=== PATIENT | male | born 1965 | race Caucasian/White ===

== ENCOUNTER 2018-02-27 17:53 | Inpatient (IN) | payer MEDICARE, SELFPAY ==
[2018-02-27 17:55] VITALS: BP 166/90; PULSE 100; RESP 16; TEMP 36.8; O2SAT 96; BMI 48.7
--- NOTE | 2018-02-27 18:13 | EKG12_ITS ---
Test Reason : Blood Pressure : / mmHG Vent. Rate : 091 BPM Atrial Rate : 091 BPM P-R Int : 144 ms QRS Dur : 090 ms QT Int : 380 ms P-R-T Axes : 055 034 047 degrees QTc Int : 467 ms Normal sinus rhythm Possible Left atrial enlargement Borderline ECG Confirmed by СВЕТЛАНА SAGE, JASMINE ([id number]), clinical editor DERRICK WEAVER ([id number]) on 03/05/2018 11:25:55 AM Referred By: LOURDES Confirmed By:JASMINE SOTOMAYOR MD
--- NOTE | 2018-02-27 18:13 | CT_ITS ---
STUDY: CT CHEST WITH CONTRAST REASON FOR EXAM: Male, 52 years old. Alcohol withdrawal, fall RADIATION DOSAGE (If Supplied By Facility): CTDIvol = ( 24.75 ) mGy, DLP = ( 2565.13 ) mGycm TECHNIQUE: Transaxial imaging was performed following intravenous administration of 100ML ml of Isovue 300 contrast material. Individualized dose optimization techniques were used for this CT. COMPARISON: None. FINDINGS: The lungs are normal. There is no demonstrated pleural abnormality. Normal heart and pericardium. Normal mediastinum. Normal hilar regions. Normal enhanced pulmonary arteries. Normal aorta arch and descending thoracic aorta. Old right rib fractures and old sternal fracture. Degenerative vertebral changes. Mildly fatty liver. CT/Chest WITH Contrast IMPRESSION: No acute pulmonary pathology. Old right rib and sternal fractures. Mild fatty liver. Electronically Signed: Carlos Mckenzie DO at 21:18 EST Tel [phone], Service support ,
--- NOTE | 2018-02-27 18:13 | CT_ITS ---
STUDY: CT ABDOMEN AND PELVIS WITH CONTRAST REASON FOR EXAM: Male, 52 years old. Alcohol withdrawal, fall RADIATION DOSAGE (If Supplied By Facility): CTDIvol = ( 24.75 ) mGy, DLP = ( 2565.13 ) mGycm TECHNIQUE: Transaxial images were obtained from the dome of the diaphragm to the symphysis pubis without oral contrast. 100ML ml of Isovue 300 contrast was administered. Sagittal and coronal images were reconstructed. Individualized dose optimization techniques were used for this CT. COMPARISON: None. FINDINGS: The visualized lung bases are unremarkable. The visualized portions of the heart are within normal limits. Fatty liver. Normal gallbladder and extrahepatic biliary system. Normal spleen. Normal pancreas. Normal bilateral adrenal glands. 1.1 cm probable exophytic cyst of the right kidney. Normal left kidney. Normal visualized stomach. Normal small intestine. Normal colon. The appendix is not visualized. Mildly calcified abdominal aorta. Normal inferior vena cava. Normal retroperitoneum. Wall thickening of the urinary bladder. Normal abdominal wall. Degenerative vertebral changes. Old right rib fractures. Possible old right pelvic injury. CT/Abdomen/Pelvis W IV Cont ONLY IMPRESSION: Fatty liver. Wall thickening of the urinary bladder. Probable exophytic right renal cyst. Correlate with ultrasound if needed. Electronically Signed: Carlos Mckenzie DO at 21:28 EST Tel [phone], Service support ,
--- NOTE | 2018-02-27 18:15 | ED.VISSUMM ---
- ER Visit Summary Date of Service: 02/27/18 Chief Complaint: Alcohol withdrawal History of Present Illness: The patient is a 52 M who presents for alcohol withdrawal. Patient states his last drink was yesterday. He drinks greater than 1 bottle of vodka daily. Patient is having nausea, vomiting, tremulousness. He has been in detox before, most recently in September. His plan is to stop drinking and he was trying to detox at home. Patient fell at some point in the last 5 days but is not sure what happened or when he fell. He is complaining of left-sided chest pain and has significant bruising. Patient is not on any blood thinners. He has history of lymphedema and hypertension. Denies any other substance use. Physical Examination: Vital signs: afebrile, hemodynamically stable, no hypoxia on room air General: well nourished, well developed, BMI of 49, sitting on bed, appears uncomfortable and tremulous, patient actively retching Skin: warm, dry, dark ecchymosis scattered on the left anterior, lateral and posterior chest wall and abdomen. Tenderness to palpation. HEENT: normocephalic and atraumatic; PERRL, EOMI, moist mucous membranes Cardiovascular: Tachycardic rate and rhythm without murmurs, no peripheral edema, 2+ pulses all distal extremities Respiratory: No increased work of breathing, lungs are clear to auscultation bilaterally, no rales, rhonchi or wheezing Abdominal: Abdomen is soft, ecchymotic, tender with normoactive bowel sounds, no guarding or rebound, no masses, exam limited secondary to body habitus MSK: Moves all extremities, no deformities, normal strength Neuro: Awake and alert, oriented ?4. Anxious. No facial droop, sensation and motor function intact and symmetric Test Results: Abnormal Lab Results 02/27/18 02/27/18 02/27/18 18:56 18:56 18:56 WBC 7.8 RBC 4.46 L Hgb 14.5 Hct 42.0 MCV 94.2 H MCH 32.5 H MCHC 34.5 RDW 14.5 RDW Differential 48.4 H Plt Count 146 L MPV 9.5 Immature Gran % (Auto) 0.300 Neut % (Auto) 83.4 H Lymph % (Auto) 7.9 L [place] % (Auto) 8.3 Eos % (Auto) 0.0 Baso % (Auto) 0.1 Absolute Neuts (auto) 6.5 Absolute Lymphs (auto) 0.62 L Total Counted Not Reportable PT INR APTT Sodium 131 L Potassium 4.3 Chloride 92 L Carbon Dioxide 21.0 Anion Gap 18 H BUN 21 H Creatinine 1.04 Estim Creat Clear Calc 95.50 Est GFR (MDRD) Af Amer 96 Est GFR (MDRD) Non-Af 79 BUN/Creatinine Ratio 20.2 H Glucose 147 H Calcium 8.5 Total Bilirubin 2.80 H AST 81 H ALT 51 Alkaline Phosphatase 69 Total Protein 7.5 Albumin 4.0 Globulin 3.5 Albumin/Globulin Ratio 1.1 Urine Color Urine Clarity Urine pH Ur Specific [place] Urine Protein Urine Glucose (UA) Urine Ketones Urine Occult Blood Urine Nitrite Urine Bilirubin Urine Urobilinogen Ur Leukocyte Esterase Urine RBC Urine WBC Ur Squamous Epith Cells Urine Bacteria Hyaline Casts Urine Mucus Urine Opiates Screen Urine Methadone Screen Ur Barbiturates Screen Ur Phencyclidine Scrn Ur Amphetamines Screen U Methamphetamin-MDMA U Benzodiazepines Scrn Urine Cocaine Screen U Cannabinoids Screen Ur Drug Screen Comment Ethyl Alcohol 5.0 02/27/18 02/27/18 02/27/18 18:56 19:25 19:25 WBC RBC Hgb Hct MCV MCH MCHC RDW RDW Differential Plt Count MPV Immature Gran % (Auto) Neut % (Auto) Lymph % (Auto) [place] % (Auto) Eos % (Auto) Baso % (Auto) Absolute Neuts (auto) Absolute Lymphs (auto) Total Counted PT 13.4 INR 1.0 APTT 20.0 L Sodium Potassium Chloride Carbon Dioxide Anion Gap BUN Creatinine Estim Creat Clear Calc Est GFR (MDRD) Af Amer Est GFR (MDRD) Non-Af BUN/Creatinine Ratio Glucose Calcium Total Bilirubin AST ALT Alkaline Phosphatase Total Protein Albumin Globulin Albumin/Globulin Ratio Urine Color Yellow Urine Clarity Sl. Cloudy Urine pH 6.0 Ur Specific [place] 1.025 Urine Protein 100 H Urine Glucose (UA) Normal Urine Ketones 150 H Urine Occult Blood 50 H Urine Nitrite Negative Urine Bilirubin 1 H Urine Urobilinogen 4 H Ur Leukocyte Esterase 25 H Urine RBC 0-5 SEEN Urine WBC 0-5 SEEN Ur Squamous Epith Cells 0-5 SEEN Urine Bacteria 0 SEEN Hyaline Casts 0-5 SEEN Urine Mucus 0 SEEN Urine Opiates Screen NEGATIVE Urine Methadone Screen NEGATIVE Ur Barbiturates Screen NEGATIVE Ur Phencyclidine Scrn NEGATIVE Ur Amphetamines Screen NEGATIVE U Methamphetamin-MDMA NEGATIVE U Benzodiazepines Scrn NEGATIVE Urine Cocaine Screen NEGATIVE U Cannabinoids Screen NEGATIVE Ur Drug Screen Comment Ethyl Alcohol Clinical Impression(s) from Imaging Studies Abdomen/Pelvis CT 02/27/18 18:13 IMPRESSION: Fatty liver. Wall thickening of the urinary bladder. Probable exophytic right renal cyst. Correlate with ultrasound if needed. Electronically Signed: Carlos Mckenzie DO at 21:28 EST Tel [phone], Service support , Chest CT 02/27/18 18:13 IMPRESSION: No acute pulmonary pathology. Old right rib and sternal fractures. Mild fatty liver. Electronically Signed: Carlos Mckenzie DO at 21:18 EST Tel [phone], Service support , Medications Given Lactated Ringer's () 1,000 mls @ 200 mls/hr IV .Q5H XOCHITL Last Admin: 02/27/18 21:56 Dose: 200 mls/hr Discontinued Medications Sodium Chloride () 1,000 mls @ 999 mls/hr IV .Q1H1M ONE Stop: 02/27/18 19:13 Last Admin: 02/27/18 18:53 Dose: 999 mls/hr Lorazepam (Ativan) 1 mg IV X1 ONE Stop: 02/27/18 18:13 Last Admin: 02/27/18 18:53 Dose: 1 mg Lorazepam (Ativan) 1 mg IV X1 ONE Stop: 02/27/18 21:44 Last Admin: 02/27/18 21:56 Dose: 1 mg Ondansetron HCl (Zofran) 4 mg IV X1 ONE Stop: 02/27/18 18:16 Last Admin: 02/27/18 18:54 Dose: 4 mg Emergency Department Course and Treatment: Patient presents in obvious alcohol withdrawal, with tremulousness, tachycardia, vomiting and anxiousness. He was given Ativan and Zofran along with IV fluids. He had great improvement in his symptoms after medication. Because patient does have the significant ecchymosis on the left torso from a fall where he does not know what happened, CT abdomen chest and pelvis was performed to evaluate for any serious injury. There were no acute internal injuries noted. EKG showed a sinus rhythm without any ischemic changes. Labs were remarkable for mild hyponatremia, mild anion gap and positive ketones in the urine, likely due to patient's heavy alcohol use and poor nutrition. Patient received IV fluids. Alcohol was negative. Tox screen was negative. Patient would benefit from medical management of his withdrawal symptoms and hydration. He would also like to be evaluated by [facility] for the detox program tomorrow. He does not want to continue drinking and was attempting to detox at home without success. He was discussed with the hospitalist and admitted. Treatment Plan: [] Disposition: [] Impression: Acute alcohol withdrawal This note was generated with [employer] dictation software. It may contain incorrect words, spelling, and punctuation that were not noted in review of the chart prior to signing ED Disposition - Plan for ED Patient: Disposition: Acute Care Hospital [facility] Chief Complaint: Substance Abuse
--- NOTE | 2018-02-27 18:18 | ED.DCSUM_ITS ---
- ER Visit Summary Date of Service: 02/27/18 Chief Complaint: Alcohol withdrawal History of Present Illness: The patient is a 52 M who presents for alcohol withdrawal. Patient states his last drink was yesterday. He drinks greater than 1 bottle of vodka daily. Patient is having nausea, vomiting, tremulou sness. He has been in detox before, most recently in September. His plan is to stop drinking and he was trying to detox at home. Patient fell at some point in the last 5 days but is not sure what happened or when he fell. He is complaining of left-sided chest pain and has significant bruising. Patient is not on any blood thinners. He has history of lymphedema and hypertension. Denies any other s ubstance use. Physical Examination: Vital signs: afebrile, hemodynamically stable, no hypoxia on room air General: well nourished, well developed, BMI of 49, sitting on bed, appears uncomfortable and tremulous, patient actively retching Skin: warm, dry, dark ecchymosis scattered on the left anterior, lateral and posterior chest wall and abdomen. Tenderness to palpation. HEENT: normocephalic and atraumatic; PERRL, EOMI, moist mucous membranes Cardiovascular: Tachycardic rate and rhythm without murmurs, no peripheral edema, 2+ pulses all distal extremities Respiratory: No increased work of breathing, lungs are clear to auscultation bilaterally, no rales, rhonchi or wheezing Abdominal: Abdomen is soft, ecchymotic, tender with normoactive bowel sounds, no guarding or rebound, no masses, exam limited secondary to body habitus MSK: Moves all extremities, no deformities, normal strength Neuro: Awake and alert, oriented ?4. Anxious. No facial droop, sensation and motor function intact and symmetric Test Results: Abnormal Lab Results 02/27/18 02/27/18 02/27/18 18:56 18:56 18:56 WBC 7.8 RBC 4.46 L Hgb 14.5 Hct 42.0 MCV 94.2 H MCH 32.5 H MCHC 34.5 RDW 14.5 RDW Differential 48.4 H Plt Count 146 L MPV 9.5 Immature Gran % (Auto) 0.300 Neut % (Auto) 83.4 H Lymph % (Auto) 7.9 L [place] % (Auto) 8.3 Eos % (Auto) 0.0 Baso % (Auto) 0.1 Absolute Neuts (auto) 6.5 Absolute Lymphs (auto) 0.62 L Total Counted Not Reportable PT INR APTT Sodium 131 L Potassium 4.3 Chloride 92 L Carbon Dioxide 21.0 Anion Gap 18 H BUN 21 H Creatinine 1.04 Estim Creat Clear Calc 95.50 Est GFR (MDRD) Af Amer 96 Est GFR (MDRD) Non-Af 79 BUN/Creatinine Ratio 20.2 H Glucose 147 H Calcium 8.5 Total Bilirubin 2.80 H AST 81 H ALT 51 Alkaline Phosphatase 69 Total Protein 7.5 Albumin 4.0 Globulin 3.5 Albumin/Globulin Ratio 1.1 Urine Color Urine Clarity Urine pH Ur Specific [place] Urine Protein Urine Glucose (UA) Urine Ketones Urine Occult Blood Urine Nitrite Urine Bilirubin Urine Urobilinogen Ur Leukocyte Esterase Urine RBC Urine WBC Ur Squamous Epith Cells Urine Bacteria Hyaline Casts Urine Mucus Urine Opiates Screen Urine Methadone Screen Ur Barbiturates Screen Ur Phencyclidine Scrn Ur Amphetamines Screen U Methamphetamin-MDMA U Benzodiazepines Scrn Urine Cocaine Screen U Cannabinoids Screen Ur Drug Screen Comment Ethyl Alcohol 5.0 02/27/18 02/27/18 02/27/18 18:56 19:25 19:25 WBC RBC Hgb Hct MCV MCH MCHC RDW RDW Differential Plt Count MPV Immature Gran % (Auto) Neut % (Auto) Lymph % (Auto) [place] % (Auto) Eos % (Auto) Baso % (Auto) Absolute Neuts (auto) Absolute Lymphs (auto) Total Counted PT 13.4 INR 1.0 APTT 20.0 L Sodium Potassium Chloride Carbon Dioxide Anion Gap BUN Creatinine Estim Creat Clear Calc Est GFR (MDRD) Af Amer Est GFR (MDRD) Non-Af BUN/Creatinine Ratio Glucose Calcium Total Bilirubin AST ALT Alkaline Phosphatase Total Protein Albumin Globulin Albumin/Globulin Ratio Urine Color Yellow Urine Clarity Sl. Cloudy Urine pH 6.0 Ur Specific [place] 1.025 Urine Protein 100 H Urine Glucose (UA) Normal Urine Ketones 150 H Urine Occult Blood 50 H Urine Nitrite Negative Urine Bilirubin 1 H Urine Urobilinogen 4 H Ur Leukocyte Esterase 25 H Urine RBC 0-5 SEEN Urine WBC 0-5 SEEN Ur Squamous Epith Cells 0-5 SEEN Urine Bacteria 0 SEEN Hyaline Casts 0-5 SEEN Urine Mucus 0 SEEN Urine Opiates Screen NEGATIVE Urine Methadone Screen NEGATIVE Ur Barbiturates Screen NEGATIVE Ur Phencyclidine Scrn NEGATIVE Ur Amphetamines Screen NEGATIVE U Methamphetamin-MDMA NEGATIVE U Benzodiazepines Scrn NEGATIVE Urine Cocaine Screen NEGATIVE U Cannabinoids Screen NEGATIVE Ur Drug Screen Comment Ethyl Alcohol Clinical Impression(s) from Imaging Studies Abdomen/Pelvis CT 02/27/18 18:13 IMPRESSION: Fatty liver. Wall thickening of the urinary bladder. Probable exophytic right renal cyst. Correlate with ultrasound if needed. Electronically Signed: Carlos Mckenzie DO at 21:28 EST Tel [phone], Service support , Chest CT 02/27/18 18:13 IMPRESSION: No acute pulmonary pathology. Old right rib and sternal fractures. Mild fatty liver. Electronically Signed: Carlos Mckenzie DO at 21:18 EST Tel [phone], Service support , Medications Given Lactated Ringer's () 1,000 mls @ 200 mls/hr IV .Q5H XOCHITL Last Admin: 02/27/18 21:56 Dose: 200 mls/hr Discontinued Medications Sodium Chloride () 1,000 mls @ 999 mls/hr IV .Q1H1M ONE Stop: 02/27/18 19:13 Last Admin: 02/27/18 18:53 Dose: 999 mls/hr Lorazepam (Ativan) 1 mg IV X1 ONE Stop: 02/27/18 18:13 Last Admin: 02/27/18 18:53 Dose: 1 mg Lorazepam (Ativan) 1 mg IV X1 ONE Stop: 02/27/18 21:44 Last Admin: 02/27/18 21:56 Dose: 1 mg Ondansetron HCl (Zofran) 4 mg IV X1 ONE Stop: 02/27/18 18:16 Last Admin: 02/27/18 18:54 Dose: 4 mg Emergency Department Course and Treatment: Patient presents in obvious alcohol withdrawal, with tremulousness, tachycardia, vomiting and anxiousness. He was given Ativan and Zofran along with IV fluids. He had great improvement in his symptoms after medication. Because patient does have the significant ecchymosis on the left torso from a fall where he does not know what happened, CT abdomen chest and pelvis was performed to evaluate for any serious injury. There were no acute internal injuries noted. EKG showed a sinus rhythm without any ischemic changes. Labs were remarkable for mild hyponatremia, mild anion gap and positive ketones in the urine, likely due to patient's heavy alcohol use and poor nutrition. Patient received IV fluids. Alcohol was negative. Tox screen was negative. Patient would benefit from medical management of his withdrawal symptoms and hydration. He would also like to be evaluated by [facility] for the detox program tomorrow. He does not want to continue drinking and was attempting to detox at home without success. He was discussed with the hospitalist and admitted. Treatment Plan: [] Disposition: [] Impression: Acute alcohol withdrawal This note was generated with [employer] dictation software. It may contain incorrect words, spelling, and punctuation that were not noted in review of the chart prior to signing ED Disposition - Plan for ED Patient: Disposition: Acute Care Hospital [facility] Chief Complaint: Substance Abuse
[2018-02-27] MEDS: LORazepam 2 MG/ML Syringe 1 MG IV ×2 (18:53→21:56)
[2018-02-27] MEDS: 0.9% Normal Saline 1,000 ML 999 ML IV (18:53)
[2018-02-27] MEDS: Ondansetron 4 MG/2 ML Vial IV (18:54)
[2018-02-27 19:34] LABS: Bacteria 0 SEEN /hpf (None Seen); Mucous, Urine 0 SEEN /hpf (<or=2+)
[2018-02-27 19:35] LABS: Absolute Lymphocyte Count 0.62 X10^3/ul (0.83-4.51); Absolute Neutrophil Count 6.5 X10^3/uL (2.0-7.7); Basophil# 0.01 X10^3/uL; Basophil% 0.1 % (0-1); Hemoglobin 14.5 g/dl (13.0-16.5); Lymphocyte # 0.62 X10^3/ul (4.0); Lymphocyte % 7.9 % (19-41); Mean Corp Hgb Conc 34.5 g/gl (32-36); Mean Corpuscular Hgb 32.5 pg (27.0-32.0); Mean Corpuscular Volume 94.2 fL (80-94); Mean Platelet Vol. 9.5 fl (6.2-12.0); Monocyte# 0.65 X10^3/uL; Monocyte% 8.3 % (0-10); Neutrophil # 6.54 X10^3/uL (2.7-7.7); Neutrophil % 83.4 % (47-70); Platelet Count 146 K/mm3 (150-450); RBC Distribution Width CV 14.5 % (11.6-14.6); RBC Distribution Width SD 48.4 fl (35.1-43.9); Red Blood Count 4.46 M/mm3 (4.6-6.2); White Blood Count 7.8 K/mm3 (4.4-11.0)
[2018-02-27 19:36] LABS: POSITIVE COUNT NO; POSITIVE DIFFERENTIAL NO; POSITIVE MORPHOLOGY NO
[2018-02-27 19:46] LABS: ALB/GLOB Ratio 1.1 RATIO (0.9-2.4); AST(SGOT) 81 U/L (15-37); Alanine Aminotransfer ALT/SGPT 51 U/L (16-61); Alkaline Phosphatase 69 U/L (45-117); Anion Gap 18 (5-15); BUN 21 mg/dL (7-18); BUN/Creat Ratio 20.2 RATIO (10-20); Calcium,Total 8.5 mg/dL (8.5-10.1); Chloride 92 mmol/L (98-107); Creatinine, Serum 1.04 mg/dL (0.70-1.30); EST Glomerular Filtration Rate 79 mL/min (>60); Est Glom Filt Rate - Afr Amer 96 mL/min (>60); Globulin 3.5 g/dL (2.2-4.2); Glucose 147 mg/dL (74-106); Potassium 4.3 mmol/L (3.5-5.1); Protein, Total 7.5 g/dL (6.4-8.2); Sodium Level 131 mmol/L (136-145)
[2018-02-27 19:46] LABS: Color, Urine Yellow (Yellow); Glucose, Dipstick Normal (Normal); Leukocyte Esterase-Dipstick 25 /ul (Negative); Nitrite-Dipstick Negative (Negative); Occult Blood-Urine 50 /ul (Negative); Protein-Dipstick 100 mg/dl (Negative); Specific Gravity, Urine 1.025 (1.002-1.030); Urine Clarity Sl. Cloudy (Clear); Urine Urobilinogen 4 mg/dl (Normal)
[2018-02-27 19:48] LABS: Urine Bilirubin Dipstick 1 mg/dL (Negative)
--- NOTE | 2018-02-27 19:49 | ED.RN ---
DR CARMONA NOTIFIED OF KETONES IN URINE
[2018-02-27 19:50] LABS: Ketone-Dipstick 150 mg/dl (Negative)
[2018-02-27 19:52] LABS: Amphetamine Urine VISTA NEGATIVE (<1000 ng/mL); Barbiturate Urine VISTA NEGATIVE (< 200 ng/mL); Benzodiazepine Urine VISTA NEGATIVE (< 200 ng/mL); Cocaine Urine VISTA NEGATIVE (< 300 ng/mL); Ecstacy Urine VISTA NEGATIVE (< 500 ng/mL); Methadone Urine VISTA NEGATIVE (< 300 ng/mL); PCP Urine VISTA NEGATIVE (< 25 ng/mL); THC Urine VISTA NEGATIVE (< 50 ng/mL); Vista UDS pH Range 6
[2018-02-27 19:53] LABS: Red Blood Cells-Urine 0-5 SEEN /hpf (0-5); Squamous Epithelial Cells - UA 0-5 SEEN /hpf (0-5); White Blood Cells 0-5 SEEN /hpf (0-5)
[2018-02-27 19:54] LABS: Hyaline Cast 0-5 SEEN /lpf (0-5)
[2018-02-27 20:13] VITALS: BP 169/85; PULSE 99; RESP 20; O2SAT 98
--- NOTE | 2018-02-27 21:37 | HP.PCM_ITS ---
Problem List (1) Alcohol dependence with withdrawal Status: Acute History of Present Illness Date of Admission: 02/27/18 Chief Complaint: nausea and tremors The patient is a 52 year old M with a significant history of hypertension, alcohol dependence, lymphedema who presents with nausea, vomiting, visual hallucination, tremors and restlessness that he associates with alcohol withdrawal. Patient drinks more than 1 bottle of vodka per day. He drinks sporadically. Reportedly over the weekend patient had binge drinking. He fell a couple of days ago and bruised his left chest and a couple of areas of his body. Patient previously spent some time for inpatient alcohol treatment at [place], [place]. He used to attend [employer] meetings. He has been on naltrexone in the past Past Medical History Medical History: Medical History (Last Updated 02/27/18 @ 22:29 by Bernardo Perdomo MD) Lymphedema I89.0 Hypertension I10 Allergies sulfamethoxazole [From Bactrim] Allergy (Verified 02/27/18 17:55) Hives trimethoprim [From Bactrim] Allergy (Verified 02/27/18 17:55) Hives Home Medications: Ambulatory Orders Medication Instructions Recorded Clonidine HCl 0.1 mg PO DAILY 02/27/18 Hydrochlorothiazide [Hctz] 50 mg PO DAILY 02/27/18 Lactobacillus Acidophilus 1 each PO DAILY 02/27/18 [Acidophilus] Lisinopril [Zestril] 40 mg PO DAILY 02/27/18 Metoprolol Succinate 200 mg PO DAILY 02/27/18 Naltrexone HCl 50 mg PO DAILY 02/27/18 [place]-3 Fatty Acids/Fish Oil [Fish 1 each PO DAILY 02/27/18 Oil 1,000 mg Capsule] Zolpidem Tartrate [Ambien 5 mg PO QHS PRN PRN 02/27/18 (Generic)] Surgical History: - - Right hand surgery;and left hip surgery. Lives: Spouse/ Significant Other Smoking Status: Never smoker Alcohol: Heavy Drugs: None - *Family History Paternal History Items: - - Alcoholism Maternal History Items: - - Alcoholism Review of Systems Constitutional: Denies: Chills, Fever, Weight Change HEENT: Reports: Head Aches. Denies: Sinus Congestion, Sinus Drainage Cardiovascular: Reports: Chest Pain - Left-sided chest pain from falling.. Denies: Palpitations Respiratory: Denies: Cough, Shortness of breath at rest, Sputum production Gastrointestinal: Reports: Nausea, Vomiting. Denies: Abdominal Pain Genitourinary: Denies: Dysuria Musculoskeletal: Denies: Joint Pain, Joint Tenderness Skin: Denies: Rash, Wounds Neurological: Denies: Numbness, Tingling, Focal weakness Psychiatric: Denies: Anxiety, Depression, Homicidal Ideations, Suicidal Ideations Hematologic/ Lymphatic: Denies: Easy Bruising, Easy Bleeding VTE Information - Inpt Only VTE Present on Admission: No VTE Mechan Device Prophylaxis: None VTE Pharm Prophylaxis ordered?: Yes Patient Problems: Active and Suspected Problems (Last Updated 02/27/18 @ 22:29 by Bernardo Perdomo MD) Alcohol dependence with withdrawal (Acute) - Physical Exam General: Alert, Oriented x3, Cooperative HEENT: Atraumatic, PERRLA, EOMI, Normocephalic Neck: Supple, No JVD, Negative Carotid Bruits Lungs: Clear to auscultation, Normal air movement, - - Tender left chest area. Cardiovascular: Regular rate, No murmurs Abdomen: Bowel Sounds Present, Soft, Non Tender Extremities: No edema, Capillary Refill Less than 3 Seconds Skin: No rashes, No breakdown, - - Bruises on left chest and multiple areas of the skin. Musculoskeletal: No Tenderness to Palpation of Joints or Extremities Neurological: Cranial nerves II-XII grossly intact Psych/Mental Status: Normal Affect, Appropriate Vital Signs Temp Pulse Resp BP Pulse Ox 98.2 F 99 20 H 169/85 H 98 02/27/18 17:55 02/27/18 20:13 02/27/18 20:13 02/27/18 20:13 02/27/18 20:13 Oxygen Delivery Method Room Air Weight: 172.365 kg Body Mass Index (BMI) 48.7 Laboratory Tests Past 24 Hrs 02/27/18 02/27/18 02/27/18 18:56 18:56 18:56 WBC 7.8 RBC 4.46 L Hgb 14.5 Hct 42.0 MCV 94.2 H MCH 32.5 H MCHC 34.5 RDW 14.5 RDW Differential 48.4 H Plt Count 146 L MPV 9.5 Immature Gran % (Auto) 0.300 Neut % (Auto) 83.4 H Lymph % (Auto) 7.9 L [place] % (Auto) 8.3 Eos % (Auto) 0.0 Baso % (Auto) 0.1 Absolute Neuts (auto) 6.5 Absolute Lymphs (auto) 0.62 L Total Counted Not Reportable PT INR APTT Sodium 131 L Potassium 4.3 Chloride 92 L Carbon Dioxide 21.0 Anion Gap 18 H BUN 21 H Creatinine 1.04 Estim Creat Clear Calc 95.50 Est GFR (MDRD) Af Amer 96 Est GFR (MDRD) Non-Af 79 BUN/Creatinine Ratio 20.2 H Glucose 147 H Calcium 8.5 Total Bilirubin 2.80 H AST 81 H ALT 51 Alkaline Phosphatase 69 Total Protein 7.5 Albumin 4.0 Globulin 3.5 Albumin/Globulin Ratio 1.1 Urine Color Urine Clarity Urine pH Ur Specific [place] Urine Protein Urine Glucose (UA) Urine Ketones Urine Occult Blood Urine Nitrite Urine Bilirubin Urine Urobilinogen Ur Leukocyte Esterase Urine RBC Urine WBC Ur Squamous Epith Cells Urine Bacteria Hyaline Casts Urine Mucus Urine Opiates Screen Urine Methadone Screen Ur Barbiturates Screen Ur Phencyclidine Scrn Ur Amphetamines Screen U Methamphetamin-MDMA U Benzodiazepines Scrn Urine Cocaine Screen U Cannabinoids Screen Ur Drug Screen Comment Ethyl Alcohol 5.0 02/27/18 02/27/18 02/27/18 18:56 19:25 19:25 WBC RBC Hgb Hct MCV MCH MCHC RDW RDW Differential Plt Count MPV Immature Gran % (Auto) Neut % (Auto) Lymph % (Auto) [place] % (Auto) Eos % (Auto) Baso % (Auto) Absolute Neuts (auto) Absolute Lymphs (auto) Total Counted PT 13.4 INR 1.0 APTT 20.0 L Sodium Potassium Chloride Carbon Dioxide Anion Gap BUN Creatinine Estim Creat Clear Calc Est GFR (MDRD) Af Amer Est GFR (MDRD) Non-Af BUN/Creatinine Ratio Glucose Calcium Total Bilirubin AST ALT Alkaline Phosphatase Total Protein Albumin Globulin Albumin/Globulin Ratio Urine Color Yellow Urine Clarity Sl. Cloudy Urine pH 6.0 Ur Specific [place] 1.025 Urine Protein 100 H Urine Glucose (UA) Normal Urine Ketones 150 H Urine Occult Blood 50 H Urine Nitrite Negative Urine Bilirubin 1 H Urine Urobilinogen 4 H Ur Leukocyte Esterase 25 H Urine RBC 0-5 SEEN Urine WBC 0-5 SEEN Ur Squamous Epith Cells 0-5 SEEN Urine Bacteria 0 SEEN Hyaline Casts 0-5 SEEN Urine Mucus 0 SEEN Urine Opiates Screen NEGATIVE Urine Methadone Screen NEGATIVE Ur Barbiturates Screen NEGATIVE Ur Phencyclidine Scrn NEGATIVE Ur Amphetamines Screen NEGATIVE U Methamphetamin-MDMA NEGATIVE U Benzodiazepines Scrn NEGATIVE Urine Cocaine Screen NEGATIVE U Cannabinoids Screen NEGATIVE Ur Drug Screen Comment Ethyl Alcohol Assessment/Plan All Active Problems (Last Updated 02/27/18 @ 22:29 by Bernardo Perdomo MD) Alcohol dependence with withdrawal (Acute) The patient is a 52 year old M with a significant history of hypertension, alcohol dependence, lymphedema who presents with nausea, vomiting, tremors; visual hallucinations and restlessness consistent with likely alcohol withdrawal. Alcohol dependence with withdrawal. History of alcohol use and symptoms consistent with alcohol withdrawal. Ethanol level 5.0; normal Urine drug screen unremarkable. Patient received Ativan and Zofran at the emergency department. Patient placed on CIWA protocol with Ativan, thiamine and multivitamins Counselled. Case Management consult. Continue home metoprolol and Ativan HTN His blood pressure at admission was not within goal. This could be due to baseline hypertension and withdrawal symptoms. Lisinopril, hydrochlorothiazide, metoprolol and clonidine continued Trend blood pressures and adjust blood pressure medication as necessary. Fall with bruises Likely from alcoholism. As needed ibuprofen ordered. Elevated liver enzymes Elevated AST and normal ALT AST over ALT 1.6 likely beginning stage of alcoholic hepatitis INR unremarkable. Hyponatremia Sodium level of 131. Likely from beer potomania. BMP in am DVT prophylaxis Subcutaneous Lovenox Code Visit OBSV E&M: 88614 Initial observation care L3
[2018-02-27] MEDS: Lactated Ringers 1,000 ML 200 ML IV (21:56)
[2018-02-27 23:05] VITALS: BMI 49.3
[2018-02-27 23:25] VITALS: BP 151/88; PULSE 117; RESP 16; TEMP 36.9; O2SAT 96
[2018-02-27 23:30] VITALS: BP 151/88; PULSE 117; RESP 16; TEMP 36.9; O2SAT 96
[2018-02-28] VITALS (9 sets, daily range): BP systolic 127–162; BP diastolic 69–99; PULSE 85–98; RESP 16–18; TEMP 36.8–37.2; O2SAT 94–97
[2018-02-28] MEDS: hydroCHLOROthiazide 25 MG Tablet 50 MG PO (05:14)
[2018-02-28] MEDS: Metoprolol(XL)Succ 200 MG Tablet PO (05:15)
[2018-02-28] MEDS: cloNIDine HCl 0.1 MG Tablet PO (05:15)
[2018-02-28] MEDS: Lisinopril 40 MG Tablet PO (05:16)
[2018-02-28 06:13] LABS: International Normalized Ratio 1.1; Prothrombin Time (Protime)PT. 14.5 SECONDS (11.7-14.9)
[2018-02-28 06:14] LABS: Partial Thromboplast Time 26.3 Seconds (24.1-36.2)
[2018-02-28 06:26] LABS: Anion Gap 12 (5-15); BUN 22 mg/dL (7-18); BUN/Creat Ratio 21.4 RATIO (10-20); Calcium,Total 8.4 mg/dL (8.5-10.1); Chloride 92 mmol/L (98-107); Creatinine, Serum 1.03 mg/dL (0.70-1.30); EST Glomerular Filtration Rate 80 mL/min (>60); Est Glom Filt Rate - Afr Amer 97 mL/min (>60); Estimated Creatinine Clearance 96.43 ml/min; Glucose 132 mg/dL (74-106); Potassium 3.7 mmol/L (3.5-5.1); Sodium Level 132 mmol/L (136-145)
[2018-02-28] MEDS: LORazepam 1 MG Tablet 2 MG PO (07:00)
[2018-02-28] MEDS: Folic Acid 1 MG Tablet PO (08:26)
[2018-02-28] MEDS: Enoxaparin 40 MG/0.4 ML Syringe SC (08:26)
[2018-02-28] MEDS: Multivitamins,Ther W-Minerals Tablet 1 TABLET PO (08:26)
[2018-02-28] MEDS: Thiamine Hydrochloride 100 MG Tablet PO ×2 (08:26→17:21)
--- NOTE | 2018-02-28 09:07 | CASEMGMT ---
Social Work Note Per Tiffanie Doll in [place], [place] is not technically [place] due to [place] but [place] is following pt to assist with discharge planning. Lisa Newsome ALGEBRAIST, PARTS CLERK PLANT MAINTENANCE
--- NOTE | 2018-02-28 09:14 | CASEMGMT ---
JAMES BOYER spoke with Tiffanie Doll at [facility]. Patient is not on [facility] program due to insurance, but [facility] will follow and provide resources and assist in discharge planning.
--- NOTE | 2018-02-28 09:54 | CASEMGMT ---
Addendum entered by Theresa Gutierres 02/28/18 09:56: As per our financial dept, pt has [facility] AARP Medicare. As per Tiffanie stockton/Vincent Levy, the plan termed on 10/12/17. As per our financial dept however, they looked up the information online and the pt's policy coverage started on 01/13/18. SW let Tiffanie stockton/Vincent Levy know, she will give pt resources for outpt services--as whether or not pt's insurance is active, it is not a well accepted insurance. Tiffanie Doll spoke w/pt in regard to his insurance, and he does plan to choose a different insurance for the following year. ALAN Garcia, TELEGRAPH SERVICE RATER Original Note: As per Tiffanie Levy, pt has no insurance. As per the face sheet, pt has AARP Medicare. SW called the financial department, someone is to call this SW back for clarification and if they are going to see this pt regarding pt's insurance. ALAN Landers, TELEGRAPH SERVICE RATER
--- NOTE | 2018-02-28 10:25 | PCM.PN.HOSP ---
Patient Problems: Active and Suspected Problems (Last Updated 02/27/18 @ 22:29 by Bernardo Perdomo MD) Alcohol dependence with withdrawal (Acute) Subjective: Less tremulous today. Still with diaphoresis. No hallucinations. Vitals/I&O's: Vital Signs Temp Pulse Resp BP Pulse Ox 37.0 C 85 16 144/87 H 97 02/28/18 08:22 02/28/18 08:22 02/28/18 08:22 02/28/18 08:22 02/28/18 08:22 Oxygen Delivery Method Room Air Weight: 174.179 kg Body Mass Index (BMI) 49.3 Intake and Output for Last 24 Hours 02/26/18 02/27/18 02/28/18 23:59 23:59 23:59 Intake Total 1040 / 1040 Balance 1040 / 1040 General: Alert, No apparent distress HEENT: Atraumatic, Normocephalic Oral: Moist Mucosa, No Gingival or Mucosal Lesions/ Ulcerations Neck: No Nodes, Thyroid Normal Size and Texture Lungs: Clear to auscultation, Normal air movement, No rhonchi, No wheeze Cardiovascular: Regular rate, Regular Rhythm, Normal S1, Normal S2 Abdomen: Bowel Sounds Present, Soft, Non Tender, Non-Distended, Obese Extremities: No Calf Tenderness, Edema Skin: - - extensive ecchymosis over left chest and upper abdomen. Psych/Mental Status: Normal Affect, Appropriate Laboratory Results 02/27/18 18:56: WBC 7.8, RBC 4.46 L, Hgb 14.5, Hct 42.0, MCV 94.2 H, MCH 32.5 H, MCHC 34.5, RDW 14.5, RDW Differential 48.4 H, Plt Count 146 L, MPV 9.5, Immature Gran % (Auto) 0.300, Neut % (Auto) 83.4 H, Lymph % (Auto) 7.9 L, [place] % (Auto) 8.3, Eos % (Auto) 0.0, Baso % (Auto) 0.1, Absolute Neuts (auto) 6.5, Absolute Lymphs (auto) 0.62 L, Total Counted Not Reportable 02/27/18 18:56: Ethyl Alcohol 5.0 02/27/18 18:56: Sodium 131 L, Potassium 4.3, Chloride 92 L, Carbon Dioxide 21.0, Anion Gap 18 H, BUN 21 H, Creatinine 1.04, Estim Creat Clear Calc 95.50, Est GFR (MDRD) Af Amer 96, Est GFR (MDRD) Non-Af 79, BUN/Creatinine Ratio 20.2 H, Glucose 147 H, Calcium 8.5, Total Bilirubin 2.80 H, AST 81 H, ALT 51, Alkaline Phosphatase 69, Total Protein 7.5, Albumin 4.0, Globulin 3.5, Albumin/Globulin Ratio 1.1 02/27/18 18:56: PT Cancelled, INR Cancelled, APTT Cancelled 02/27/18 19:25: Urine Opiates Screen NEGATIVE, Urine Methadone Screen NEGATIVE, Ur Barbiturates Screen NEGATIVE, Ur Phencyclidine Scrn NEGATIVE, Ur Amphetamines Screen NEGATIVE, U Methamphetamin-MDMA NEGATIVE, U Benzodiazepines Scrn NEGATIVE, Urine Cocaine Screen NEGATIVE, U Cannabinoids Screen NEGATIVE, Ur Drug Screen Comment 02/27/18 19:25: Urine Color Yellow, Urine Clarity Sl. Cloudy, Urine pH 6.0, Ur Specific [place] 1.025, Urine Protein 100 H, Urine Glucose (UA) Normal, Urine Ketones 150 H, Urine Occult Blood 50 H, Urine Nitrite Negative, Urine Bilirubin 1 H, Urine Urobilinogen 4 H, Ur Leukocyte Esterase 25 H, Urine RBC 0-5 SEEN, Urine WBC 0-5 SEEN, Ur Squamous Epith Cells 0-5 SEEN, Urine Bacteria 0 SEEN, Hyaline Casts 0-5 SEEN, Urine Mucus 0 SEEN 02/28/18 05:56: Sodium 132 L, Potassium 3.7, Chloride 92 L, Carbon Dioxide 28.0, Anion Gap 12, BUN 22 H, Creatinine 1.03, Estim Creat Clear Calc 96.43, Est GFR (MDRD) Af Amer 97, Est GFR (MDRD) Non-Af 80, BUN/Creatinine Ratio 21.4 H, Glucose 132 H, Calcium 8.4 L 02/28/18 05:56: PT 14.5, INR 1.1, APTT 26.3 Current Medications Clonidine (Catapres) 0.1 mg PO DAILY [facility] Last Admin: 02/28/18 05:15 Dose: 0.1 mg Enoxaparin Sodium (Lovenox) 40 mg SC DAILY@1000 [facility] Last Admin: 02/28/18 08:26 Dose: 40 mg Folic Acid (Folic Acid) 1 mg PO DAILY@0800 [facility] Stop: 03/02/18 08:01 Last Admin: 02/28/18 08:26 Dose: 1 mg Hydrochlorothiazide (Hctz) 50 mg PO DAILY [facility] Last Admin: 02/28/18 05:14 Dose: 50 mg Ibuprofen (Motrin) 600 mg PO Q6H PRN PRN PRN Reason: MILD PAIN (1-3/10) Lactobacillus Acidophilus (Acidophilus) 1 tablet PO DAILY [facility] Last Admin: 02/28/18 05:15 Dose: 1 tablet Lisinopril (Zestril) 40 mg PO DAILY [facility] Last Admin: 02/28/18 05:16 Dose: 40 mg Lorazepam (Ativan) 2 mg PO Q2H PRN PRN; Protocol PRN Reason: CIWA score > 8 but <15 Last Admin: 02/28/18 07:00 Dose: 2 mg Lorazepam (Ativan) 2 mg PO UD PRN; Protocol PRN Reason: CIWA score >/=15. Lorazepam (Ativan) 2 mg IV Q2H PRN PRN; Protocol PRN Reason: CIWA score > 8 but <15 Lorazepam (Ativan) 2 mg IV UD PRN; Protocol PRN Reason: CIWA score >/=15. Magnesium Hydroxide (Milk Of Magnesia) 30 ml PO DAILY PRN PRN PRN Reason: Constipation Melatonin (Melatonin) 5 mg PO QHS PRN PRN Reason: insomnia Metoprolol Succinate (Toprol Xl (Beta Dorota)) 200 mg PO DAILY [facility] Last Admin: 02/28/18 05:15 Dose: 200 mg Multivitamins/Minerals ([facility] Admin: 02/28/18 08:26 Dose: 1 tablet Ondansetron HCl (Zofran) 4 mg IV Q6H PRN PRN PRN Reason: NAUSEA/VOMITING Sodium Chloride () 5 - 30 ml IV UD PRN PRN Reason: SALINE FLUSH Thiamine HCl ([facility]itamin B1) [facility] Stop: 03/02/18 17:01 Last Admin: 02/28/18 08:26 Dose: 100 mg Medical Necessity - Tobacco Use Smoking Status: Never smoker Assessment/Plan All Active Problems (Last Updated 02/27/18 @ 22:29 by Bernardo Perdomo MD) Alcohol dependence with withdrawal (Acute) 1. acute alcohol withdrawal drinks at least 750cc liquor/day continue ativan, thiamine and folate last drink may have been 02/26 advised given his high amounts of alcohol he consumes, he may still be risk for worsening withdrawal 96 hours after last drink advised patient that he will have a hard time quitting on his own, and will need to seek additional services for assistance Evaluated by [facility], but unable to help, since he has no insurance 2. lymphedema chronic suspect underlying CHF and/or pulmonary hypertension no acute issues at this time will need follow up as outpt. 3. DVT proph: LMWH. Code Visit Inpatient E&M: 86175 Subs Hosp L2
--- NOTE | 2018-02-28 10:30 | PN_ITS ---
Patient Problems: Active and Suspected Problems (Last Updated 02/27/18 @ 22:29 by Bernardo Perdomo MD) Alcohol dependence with withdrawal (Acute) Subjective: Less tremulous today. Still with diaphoresis. No hallucinations. Vitals/I&O's: Vital Signs Temp Pulse Resp BP Pulse Ox 37.0 C 85 16 144/87 H 97 02/28/18 08:22 02/28/18 08:22 02/28/18 08:22 02/28/18 08:22 02/28/18 08:22 Oxygen Delivery Method Room Air Weight: 174.179 kg Body Mass Index (BMI) 49.3 Intake and Output for Last 24 Hours 02/26/18 02/27/18 02/28/18 23:59 23:59 23:59 Intake Total 1040 / 1040 Balance 1040 / 1040 General: Alert, No apparent distress HEENT: Atraumatic, Normocephalic Oral: Moist Mucosa, No Gingival or Mucosal Lesions/ Ulcerations Neck: No Nodes, Thyroid Normal Size and Texture Lungs: Clear to auscultation, Normal air movement, No rhonchi, No wheeze Cardiovascular: Regular rate, Regular Rhythm, Normal S1, Normal S2 Abdomen: Bowel Sounds Present, Soft, Non Tender, Non-Distended, Obese Extremities: No Calf Tenderness, Edema Skin: - - extensive ecchymosis over left chest and upper abdomen. Psych/Mental Status: Normal Affect, Appropriate Laboratory Results 02/27/18 18:56: WBC 7.8, RBC 4.46 L, Hgb 14.5, Hct 42.0, MCV 94.2 H, MCH 32.5 H, MCHC 34.5, RDW 14.5, RDW Differential 48.4 H, Plt Count 146 L, MPV 9.5, Immature Gran % (Auto) 0.300, Neut % (Auto) 83.4 H, Lymph % (Auto) 7.9 L, [place] % (Auto) 8.3, Eos % (Auto) 0.0, Baso % (Auto) 0.1, Absolute Neuts (auto) 6.5, Absolute Lymphs (auto) 0.62 L, Total Counted Not Reportable 02/27/18 18:56: Ethyl Alcohol 5.0 02/27/18 18:56: Sodium 131 L, Potassium 4.3, Chloride 92 L, Carbon Dioxide 21.0, Anion Gap 18 H, BUN 21 H, Creatinine 1.04, Estim Creat Clear Calc 95.50, Est GFR (MDRD) Af Amer 96, Est GFR (MDRD) Non-Af 79, BUN/Creatinine Ratio 20.2 H, Glucose 147 H, Calcium 8.5, Total Bilirubin 2.80 H, AST 81 H, ALT 51, Alkaline Phosphatase 69, Total Protein 7.5, Albumin 4.0, Globulin 3.5, Albumin/Globulin Ratio 1.1 02/27/18 18:56: PT Cancelled, INR Cancelled, APTT Cancelled 02/27/18 19:25: Urine Opiates Screen NEGATIVE, Urine Methadone Screen NEGATIVE, Ur Barbiturates Screen NEGATIVE, Ur Phencyclidine Scrn NEGATIVE, Ur Amphetamines Screen NEGATIVE, U Methamphetamin-MDMA NEGATIVE, U Benzodiazepines Scrn NEGATIVE, Urine Cocaine Screen NEGATIVE, U Cannabinoids Screen NEGATIVE, Ur Drug Screen Comment 02/27/18 19:25: Urine Color Yellow, Urine Clarity Sl. Cloudy, Urine pH 6.0, Ur Specific [place] 1.025, Urine Protein 100 H, Urine Glucose (UA) Normal, Urine Ketones 150 H, Urine Occult Blood 50 H, Urine Nitrite Negative, Urine Bilirubin 1 H, Urine Urobilinogen 4 H, Ur Leukocyte Esterase 25 H, Urine RBC 0-5 SEEN, Urine WBC 0-5 SEEN, Ur Squamous Epith Cells 0-5 SEEN, Urine Bacteria 0 SEEN, Hyaline Casts 0-5 SEEN, Urine Mucus 0 SEEN 02/28/18 05:56: Sodium 132 L, Potassium 3.7, Chloride 92 L, Carbon Dioxide 28.0, Anion Gap 12, BUN 22 H, Creatinine 1.03, Estim Creat Clear Calc 96.43, Est GFR (MDRD) Af Amer 97, Est GFR (MDRD) Non-Af 80, BUN/Creatinine Ratio 21.4 H, Glucose 132 H, Calcium 8.4 L 02/28/18 05:56: PT 14.5, INR 1.1, APTT 26.3 Current Medications Clonidine (Catapres) 0.1 mg PO DAILY [facility] Last Admin: 02/28/18 05:15 Dose: 0.1 mg Enoxaparin Sodium (Lovenox) 40 mg SC DAILY@1000 [facility] Last Admin: 02/28/18 08:26 Dose: 40 mg Folic Acid (Folic Acid) 1 mg PO DAILY@0800 [facility] Stop: 03/02/18 08:01 Last Admin: 02/28/18 08:26 Dose: 1 mg Hydrochlorothiazide (Hctz) 50 mg PO DAILY [facility] Last Admin: 02/28/18 05:14 Dose: 50 mg Ibuprofen (Motrin) 600 mg PO Q6H PRN PRN PRN Reason: MILD PAIN (1-3/10) Lactobacillus Acidophilus (Acidophilus) 1 tablet PO DAILY [facility] Last Admin: 02/28/18 05:15 Dose: 1 tablet Lisinopril (Zestril) 40 mg PO DAILY [facility] Last Admin: 02/28/18 05:16 Dose: 40 mg Lorazepam (Ativan) 2 mg PO Q2H PRN PRN; Protocol PRN Reason: CIWA score > 8 but <15 Last Admin: 02/28/18 07:00 Dose: 2 mg Lorazepam (Ativan) 2 mg PO UD PRN; Protocol PRN Reason: CIWA score >/=15. Lorazepam (Ativan) 2 mg IV Q2H PRN PRN; Protocol PRN Reason: CIWA score > 8 but <15 Lorazepam (Ativan) 2 mg IV UD PRN; Protocol PRN Reason: CIWA score >/=15. Magnesium Hydroxide (Milk Of Magnesia) 30 ml PO DAILY PRN PRN PRN Reason: Constipation Melatonin (Melatonin) 5 mg PO QHS PRN PRN Reason: insomnia Metoprolol Succinate (Toprol Xl (Beta Dorota)) 200 mg PO DAILY [facility] Last Admin: 02/28/18 05:15 Dose: 200 mg [facility]ivitamins/Minerals ([facility]) [facility] Last Admin: 02/28/18 08:26 Dose: 1 tablet Ondansetron HCl (Zofran) 4 mg IV Q6H PRN PRN PRN Reason: NAUSEA/VOMITING Sodium Chloride () 5 - 30 ml IV UD PRN PRN Reason: SALINE FLUSH Thiamine HCl ([facility]itamin B[facility]) [facility] Stop: 03/02/18 17:01 Last Admin: 02/28/18 08:26 Dose: 100 mg Medical Necessity - Tobacco Use Smoking Status: Never smoker Assessment/Plan All Active Problems (Last Updated 02/27/18 @ 22:29 by Bernardo Perdomo MD) Alcohol dependence with withdrawal (Acute) 1. acute alcohol withdrawal * drinks at least 750cc liquor/day * continue ativan, thiamine and folate * last drink may have been 02/26 * advised given his high amounts of alcohol he consumes, he may still be risk for worsening withdrawal 96 hours after last drink * advised patient that he will have a hard time quitting on his own, and will need to seek additional services for assistance * Evaluated by [facility], but unable to help, since he has no insurance 2. lymphedema * chronic * suspect underlying CHF and/or pulmonary hypertension * no acute issues at this time * will need follow up as outpt. 3. DVT proph: LMWH. Code Visit Inpatient E&M: 19348 Subs Hosp L2
[2018-02-28] MEDS: MELATONIN 10 MG TABLET 5 MG PO (21:35)
[2018-03-01 03:30] VITALS: BP 154/89; PULSE 67; RESP 16; TEMP 36.6; O2SAT 97
[2018-03-01 05:24] VITALS: BP 154/89; PULSE 67; RESP 16; TEMP 36.6; O2SAT 97
[2018-03-01 07:11] VITALS: O2SAT 95
[2018-03-01 10:00] VITALS: BP 124/75; PULSE 90; RESP 16; TEMP 36.8; O2SAT 100
[2018-03-01 10:02] VITALS: PULSE 90
[2018-03-01] MEDS: Lisinopril 40 MG Tablet PO (10:02)
[2018-03-01] MEDS: Metoprolol(XL)Succ 200 MG Tablet PO (10:02)
[2018-03-01] MEDS: hydroCHLOROthiazide 25 MG Tablet 50 MG PO (10:02)
[2018-03-01] MEDS: Enoxaparin 40 MG/0.4 ML Syringe SC (10:03)
[2018-03-01] MEDS: Thiamine Hydrochloride 100 MG Tablet PO (10:03)
[2018-03-01] MEDS: Multivitamins,Ther W-Minerals Tablet 1 TABLET PO (10:03)
[2018-03-01] MEDS: cloNIDine HCl 0.1 MG Tablet PO (10:03)
[2018-03-01] MEDS: Folic Acid 1 MG Tablet PO (10:03)
--- NOTE | 2018-03-01 10:13 | PCM.DC ---
- Discharge Diagnoses Current Active Problems: Current Active and Chronic Problems (Last Updated 02/27/18 @ 22:29 by Bernardo Perdomo MD) Alcohol dependence with withdrawal (Acute) You will use the following diet at home:: Cardiac Your food should be the consistency of: Regular Your liquids should be the consistency of: Regular/Thin Call your doctor if you observe: Fever of 101 or Higher, Shortness of breath, Chest pain Allergies/Adverse Reactions: Allergies sulfamethoxazole [From Bactrim] Allergy (Verified 02/27/18 17:55) Hives trimethoprim [From Bactrim] Allergy (Verified 02/27/18 17:55) Hives Medications to take at Discharge Clonidine HCl 0.1 mg PO DAILY 02/27/18 Hydrochlorothiazide [Hctz] 50 mg PO DAILY 02/27/18 Lactobacillus Acidophilus [Acidophilus] 1 each PO DAILY 02/27/18 Lisinopril [Zestril] 40 mg PO DAILY 02/27/18 Metoprolol Succinate 200 mg PO DAILY 02/27/18 Naltrexone HCl 50 mg PO DAILY 02/27/18 [place]-3 Fatty Acids/Fish Oil [Fish Oil 1,000 mg Capsule] 1 each PO DAILY 02/27/18 Zolpidem Tartrate [Ambien] 5 mg PO QHS PRN PRN 02/27/18 Multivitamins,Ther W-Minerals [Multivitamin With Minerals] 1 tablet PO DAILYCM tablet 03/01/18 Primary Care Physician: [facility] Doctor,Out of [Primary Care Provider] - Test Results: Test results from this visit will be discussed in further detail at your follow-up appointment, if applicable. Please Follow Up With: Addiction program When: call number provided 03/03/18. Proposed Discharge Date: 03/01/18
--- NOTE | 2018-03-01 10:15 | PCM.DC.SUM ---
Discharge Date and Diagnosis - Problem List Patient Problems: Active and Suspected Problems (Last Updated 02/27/18 @ 22:29 by Bernardo Perdomo MD) Alcohol dependence with withdrawal (Acute) Date of Admission: 02/27/18 Date of Discharge: 03/01/18 - Primary Discharge Diagnosis Active and Suspected Problems (Last Updated 02/27/18 @ 22:29 by Bernardo Perdomo MD) Alcohol dependence with withdrawal (Acute) Hospital Course and Treatment Imaging Results: Clinical Impression(s) from Imaging Studies Abdomen/Pelvis CT 02/27/18 18:13 IMPRESSION: Fatty liver. Wall thickening of the urinary bladder. Probable exophytic right renal cyst. Correlate with ultrasound if needed. Electronically Signed: Carlos Mckenzie DO at 21:28 EST Tel [phone], Service support , Chest CT 02/27/18 18:13 IMPRESSION: No acute pulmonary pathology. Old right rib and sternal fractures. Mild fatty liver. Electronically Signed: Carlos Mckenzie DO at 21:18 EST Tel [phone], Service support , Operations: None Procedures: None Summary of Care Provided: The patient is a 52 year old M Maria Teresa with symptoms of her on the 13 or 14. Total and evaluated. Patient was started on Ativan as needed 7 AM. Patient has remained stable since then and actually looks better. Patient was seen in consultation by [facility] who did provide the patient some information for a program to follow-up with. Patient called but unfortunately it was after hours so patient will need to arrange further follow-up. Discussed with patient about proper coping mechanisms and utilizing resources to help with his addiction in general terms. Patient will be discharged home today with instructions to contact the number provided by [facility] for further addiction counseling. [] Patient Problems: Active and Suspected Problems (Last Updated 02/27/18 @ 22:29 by Bernardo Perdomo MD) Alcohol dependence with withdrawal (Acute) - Physical Exam General: Alert, Cooperative, No apparent distress HEENT: Atraumatic, Normocephalic Neurological: Gait narrow based and stable Psych/Mental Status: Normal Affect, Appropriate Vital Signs Temp Pulse Resp BP Pulse Ox 36.8 C 90 16 124/75 H 100 03/01/18 10:00 03/01/18 10:02 03/01/18 10:00 03/01/18 10:00 03/01/18 10:00 Oxygen Delivery Method Room Air Weight: 174.179 kg Body Mass Index (BMI) 49.3 Intake and Output for Last 24 Hours 02/27/18 02/28/18 03/01/18 23:59 23:59 23:59 Intake Total 2520 / 2520 400 / 400 Balance 2520 / 2520 400 / 400 Discharge Diet: Low fat/ Low Cholesterol Discharge Activity: Return to Normal Activity Call your doctor if you observe: Fever of 101 or Higher, Shortness of breath, Chest pain Home Medications: Medications to take at Discharge Clonidine HCl 0.1 mg PO DAILY 02/27/18 Hydrochlorothiazide [Hctz] 50 mg PO DAILY 02/27/18 Lactobacillus Acidophilus [Acidophilus] 1 each PO DAILY 02/27/18 Lisinopril [Zestril] 40 mg PO DAILY 02/27/18 Metoprolol Succinate 200 mg PO DAILY 02/27/18 Naltrexone HCl 50 mg PO DAILY 02/27/18 [place]-3 Fatty Acids/Fish Oil [Fish Oil 1,000 mg Capsule] 1 each PO DAILY 02/27/18 Zolpidem Tartrate [Ambien] 5 mg PO QHS PRN PRN 02/27/18 Multivitamins,Ther W-Minerals [Multivitamin With Minerals] 1 tablet PO DAILYCM tablet 03/01/18 Primary Care Physician: Marybeth Doctor,Out of [Primary Care Provider] - Please Follow Up With: Addiction program When: call number provided 03/03/18. Disposition: Home Minutes spent on discharge:: 35 Patient Condition:: Fair Medical Necessity - Tobacco Use Smoking Status: Never smoker Meaningful Use Info Meaningful Use Diagnoses (Choose all that apply): None applicable Code Visit Inpatient E&M: 29508 Disch Hosp
[2018-03-01 12:18] VITALS: BP 150/77; PULSE 78; RESP 16; TEMP 37.4; O2SAT 95
== END 2018-03-01 12:44 | disposition home or self-care (01) | DRG 897 ==
LOC: ED 19:40 → MS3 22:16
PROVIDERS: Admitting Provider Hospitalist; Emergency Provider Emergency Medicine
DX: F10.239 Alcohol dependence with withdrawal, unspecified (principal); E87.1 Hypo-osmolality and hyponatremia; Z68.42 Body mass index [BMI] 45.0-49.9, adult; I10 Essential (primary) hypertension; I89.0 Lymphedema, not elsewhere classified; E66.9 Obesity, unspecified
CPT/HCPCS: 36415; 71260; 74177; 80048; 80053; 80307; 80320; 81001; 85025; 85610; 85730; 93005; 99284; J7030; Q9967; A4216; G0480; J2405